=== PATIENT | male | born 1960 | race Two or more races ===

== ENCOUNTER 2024-06-16 17:53 | Inpatient (IN) | payer MEDICAID, OTHER ==
[~2024-06-16] VITALS: Ht 170.2 cm; Wt 89.3 kg
[2024-06-16] MEDS: SODIUM CHLORIDE 0.9% 1,000 ML IV ONE (02:40)
[2024-06-16] MEDS ORDERED: VANCOMYCIN PER PHARMACY 0 MG IV SCH ×3 (19:15→22:45)
[2024-06-16] MEDS ORDERED: VANCOMYCIN 1GM/250ML 250 ML IV SCH (20:15)
[2024-06-16 20:33] LABS: Basophils # (auto) 0.1 10 ^3/uL (0-0.2); Basophils % (auto) 0.9 % (0.0-2.0); Eosinophils # (auto) 0.1 10 ^3/uL (0-0.8); Eosinophils % (auto) 1.9 % (0.0-7.0); Hematocrit 38.9 % (41.0-53.0); Lymphocytes # (auto) 1.5 10 ^3/uL (0.4-5.4); Lymphocytes % (auto) 25.4 % (10.0-50.0); Mean Corpuscular Hemoglobin 31.7 pg (28.0-32.0); Mean Corpuscular Hgb Conc. 33.4 g/dL (32.0-36.0); Mean Corpuscular Volume 94.9 fL (80.0-100.0); Monocytes # (auto) 0.8 10 ^3/uL (0-1.3); Monocytes % (auto) 14.4 % (0.0-12.0); Neutrophils # (auto) 3.3 10 ^3/uL (1.6-8.6); Neutrophils % (auto) 57.4 % (37.0-80.0); Platelet Count (auto) 277 10^3/uL (140-450); White Blood Cell 5.8 10^3/uL (4.4-10.8)
[2024-06-16 20:48] LABS: Alanine Aminotransferase 10 U/L (7-40); Alkaline Phosphatase 91 U/L (46-116); Anion Gap 7 (5-15); Aspartate Aminotransferase 10 U/L (13-40); BUN/Creatinine Ratio 13.3 (10.0-20.0); Blood Urea Nitrogen 11 mg/dL (9-23); CRP High Sensitivity 0.44 mg/dL (<1.0); Calcium 9.7 mg/dL (8.7-10.4); Carbon Dioxide 28 mmol/L (20-31); Chloride 103 mmol/L (98-107); Glucose 105 mg/dL (74-106); Potassium 3.9 mmol/L (3.5-5.1); Sodium 138 mmol/L (136-145)
[2024-06-16 20:49] LABS: Bilirubin, Total 0.2 mg/dL (0.2-1.0)
[2024-06-16 21:31] LABS: Lactic Acid w/Reflex 2.5 mmol/L (0.4-2.0)
[2024-06-16 21:38] LABS: Erythrocyte Sedimentation Rate 16 mm/hr (0-20)
[2024-06-16] MEDS ORDERED: ACETAMINOPHEN 325 MG TAB PO PRN (22:45)
[2024-06-16] MEDS ORDERED: ONDANSETRON HCL 4 MG/2 ML VIAL IV PRN (22:45)
[2024-06-17] MEDS: SODIUM CHLORIDE 0.9% 1,000 ML IV ONE (03:27)
[2024-06-17] MEDS: cefTRIAXone 1GM/50ML D5W 50 ML IV ONE (03:34)
[2024-06-17] MEDS: VANCOMYCIN 1GM/250ML 250 ML IV SCH (03:54)
[2024-06-17] MEDS ORDERED: TAMS0.4C39 PO (05:27)
[2024-06-17] MEDS ORDERED: ALPR0.5T PO (05:27)
[2024-06-17] MEDS ORDERED: ASPI1TAB20 PO (05:27)
[2024-06-17] MEDS ORDERED: METO25TA93 PO (05:27)
[2024-06-17] MEDS ORDERED: CLOP75TA28 PO (05:27)
[2024-06-17] MEDS ORDERED: LISI-711 PO (05:27)
[2024-06-17 05:51] VITALS: BP 135/67; PULSE 56; RESP 18; TEMP 97.5; O2SAT 98
[2024-06-17 08:03] LABS: Hematocrit 40.5 % (41.0-53.0); Hemoglobin 13.7 g/dL (13.5-17.5); Mean Corpuscular Hemoglobin 32.2 pg (28.0-32.0); Mean Corpuscular Hgb Conc. 33.7 g/dL (32.0-36.0); Mean Corpuscular Volume 95.3 fL (80.0-100.0); Platelet Count (auto) 256 10^3/uL (140-450); Red Blood Cells 4.25 10^6/uL (4.5-5.90); Red Cell Distribution Width 12.8 % (11.8-14.3); White Blood Cell 4.7 10^3/uL (4.4-10.8)
[2024-06-17 08:16] LABS: Basophils % (manual) 0 (0.0-2.0); Blast Cells 0; Metamyelocytes % 0; Myelocytes % 0; Promyelocytes % 0; Reactive Lymphocytes 0
[2024-06-17 08:30] LABS: Band Neutrophils % (manual) 1; Eosinophils % (manual) 5 (0-7); Lymphocytes % (manual) 43 (10.0-50.0); Monocytes % (manual) 15 (0-12)
[2024-06-17 08:31] LABS: Platelet Estimate Adequate
[2024-06-17 09:00] VITALS: BP 183/81; PULSE 57; RESP 15; TEMP 97.8; O2SAT 97
[2024-06-17] MEDS: HYDROcodone-ACET 5/325MG TAB PO PRN (09:34)
[2024-06-17] MEDS: ENOXAPARIN SOD 40 MG/0.4 ML SYRINGE SC SCH (09:34)
[2024-06-17] MEDS: FAMOTIDINE 20 MG TAB PO SCH (09:34)
[2024-06-17] MEDS ORDERED: ALPRAZolam 0.5 MG TAB PO PRN (11:15)
[2024-06-17] MEDS: CLOPIDOGREL BISULFATE 75 MG TAB PO ONE (12:14)
[2024-06-17] MEDS: LISINOPRIL 5 MG TAB PO ONE (12:15)
[2024-06-17] MEDS: METOPROLOL SUCCINATE XL 50 MG TAB PO ONE (12:17)
[2024-06-17] MEDS: MORPHINE SULFATE INJ 2 MG/ml SYRG IV PRN (12:24)
[2024-06-17 12:45] VITALS: BP 128/79; PULSE 61; RESP 16; TEMP 97.7; O2SAT 98
[2024-06-17 16:33] VITALS: BP 122/75; PULSE 68; RESP 16; TEMP 97.8; O2SAT 96
[2024-06-17] MEDS ORDERED: HYDR25TA4 PO (17:11)
[2024-06-17] MEDS ORDERED: BUDE1AER4 IN (17:11)
[2024-06-17] MEDS ORDERED: LISI2.5T47 PO (17:11)
[2024-06-17] MEDS: TAMSULOSIN HYDROCHLORIDE 0.4 MG CAP PO SCH (17:29)
[2024-06-17 19:22] LABS: Lactic Acid w/Reflex 2.6 mmol/L (0.4-2.0)
[2024-06-17] MEDS: VANCOMYCIN 1.25GM/250ML 250 ML IV SCH (19:54)
[2024-06-17 20:00] VITALS: PULSE 86; RESP 18; O2SAT 98
[2024-06-17 21:00] VITALS: BP 134/80; PULSE 86; RESP 18; TEMP 99; O2SAT 98
[2024-06-17] MEDS: METOPROLOL SUCCINATE XL 50 MG TAB PO SCH (21:49)
[2024-06-17] MEDS: LISINOPRIL 5 MG TAB PO SCH (21:50)
[2024-06-17] MEDS: cefTRIAXone 1GM/50ML D5W 50 ML IV SCH (21:51)
[2024-06-18] VITALS (7 sets, daily range): BP systolic 111–133; BP diastolic 66–85; PULSE 70–82; RESP 16–19; TEMP 97.6–97.9; O2SAT 92–97
[2024-06-18] MEDS: SODIUM CHLORIDE 0.9% 1,000 ML IV ONE (01:10)
[2024-06-18 05:53] LABS: Basophils # (auto) 0 10 ^3/uL (0-0.2); Eosinophils # (auto) 0.1 10 ^3/uL (0-0.8); Eosinophils % (auto) 1.6 % (0.0-7.0); Hemoglobin 13.3 g/dL (13.5-17.5); Lymphocytes # (auto) 1.5 10 ^3/uL (0.4-5.4); Lymphocytes % (auto) 32.9 % (10.0-50.0); Mean Corpuscular Hemoglobin 31.2 pg (28.0-32.0); Mean Corpuscular Hgb Conc. 33.2 g/dL (32.0-36.0); Mean Corpuscular Volume 94.1 fL (80.0-100.0); Monocytes # (auto) 0.7 10 ^3/uL (0-1.3); Monocytes % (auto) 14.2 % (0.0-12.0); Neutrophils # (auto) 2.4 10 ^3/uL (1.6-8.6); Neutrophils % (auto) 50.3 % (37.0-80.0); Nucleated Red Blood Cells % 0.2 %; Platelet Count (auto) 265 10^3/uL (140-450); Red Blood Cells 4.25 10^6/uL (4.5-5.90); Red Cell Distribution Width 13.3 % (11.8-14.3); White Blood Cell 4.7 10^3/uL (4.4-10.8)
[2024-06-18] MEDS: ASPirin 81 mg TAB PO SCH (09:30)
[2024-06-18] MEDS: CLOPIDOGREL BISULFATE 75 MG TAB PO SCH (09:30)
[2024-06-19] VITALS (7 sets, daily range): BP systolic 93–127; BP diastolic 59–74; PULSE 58–86; RESP 17–20; TEMP 97.5–98; O2SAT 93–100
[2024-06-19 07:13] LABS: Basophils # (auto) 0 10 ^3/uL (0-0.2); Basophils % (auto) 0.7 % (0.0-2.0); Eosinophils # (auto) 0.1 10 ^3/uL (0-0.8); Eosinophils % (auto) 1.5 % (0.0-7.0); Hematocrit 43.4 % (41.0-53.0); Hemoglobin 14.7 g/dL (13.5-17.5); Lymphocytes # (auto) 1.2 10 ^3/uL (0.4-5.4); Lymphocytes % (auto) 23.5 % (10.0-50.0); Mean Corpuscular Hemoglobin 32.3 pg (28.0-32.0); Mean Corpuscular Hgb Conc. 33.9 g/dL (32.0-36.0); Mean Corpuscular Volume 95.2 fL (80.0-100.0); Monocytes # (auto) 0.7 10 ^3/uL (0-1.3); Monocytes % (auto) 12.9 % (0.0-12.0); Neutrophils # (auto) 3.2 10 ^3/uL (1.6-8.6); Neutrophils % (auto) 61.4 % (37.0-80.0); Nucleated Red Blood Cells % 0.1 %; Platelet Count (auto) 289 10^3/uL (140-450); Red Blood Cells 4.56 10^6/uL (4.5-5.90); Red Cell Distribution Width 13.4 % (11.8-14.3); White Blood Cell 5.2 10^3/uL (4.4-10.8)
[2024-06-19] MEDS: VANCOMYCIN 1GM/250ML 250 ML IV ONE (21:30)
[2024-06-20 01:00] VITALS: BP 113/74; PULSE 82; RESP 18; TEMP 98.5; O2SAT 98
[2024-06-20 05:00] VITALS: BP 135/81; PULSE 87; RESP 18; TEMP 98.4; O2SAT 97
[2024-06-20 06:58] LABS: Basophils # (auto) 0 10 ^3/uL (0-0.2); Basophils % (auto) 0.8 % (0.0-2.0); Eosinophils # (auto) 0.1 10 ^3/uL (0-0.8); Eosinophils % (auto) 1.7 % (0.0-7.0); Hematocrit 40.9 % (41.0-53.0); Hemoglobin 13.7 g/dL (13.5-17.5); Lymphocytes # (auto) 1.6 10 ^3/uL (0.4-5.4); Lymphocytes % (auto) 25.8 % (10.0-50.0); Mean Corpuscular Hgb Conc. 33.6 g/dL (32.0-36.0); Mean Corpuscular Volume 95.3 fL (80.0-100.0); Monocytes % (auto) 15.3 % (0.0-12.0); Neutrophils # (auto) 3.5 10 ^3/uL (1.6-8.6); Neutrophils % (auto) 56.4 % (37.0-80.0); Platelet Count (auto) 282 10^3/uL (140-450); Red Blood Cells 4.29 10^6/uL (4.5-5.90); Red Cell Distribution Width 13.1 % (11.8-14.3); White Blood Cell 6.2 10^3/uL (4.4-10.8)
[2024-06-20 08:00] VITALS: BP 119/70; PULSE 81; RESP 18; TEMP 98.3; O2SAT 95
[2024-06-20 12:00] VITALS: BP 119/77; PULSE 70; RESP 18; TEMP 97.2; O2SAT 99
[2024-06-20] MEDS ORDERED: DOXY100C79 PO (15:42)
[2024-06-20 16:00] VITALS: BP 140/80; PULSE 72; RESP 20; TEMP 97.4; O2SAT 95
[2024-06-21] MEDS ORDERED: CEFD300C2 PO (15:01)
== END 2024-06-20 17:39 | disposition home or self-care (01) | DRG 383 ==
LOC: ER 17:59 → OVERFLOW 22:42 → EAST 06-17 05:15
PROVIDERS: ADMIT Nurse Practitioner Family; ATTEND Nurse Practitioner Family
DX: L03.032 Cellulitis of left toe (principal); E87.20 Acidosis, unspecified; E78.5 Hyperlipidemia, unspecified; I10 Essential (primary) hypertension; L97.529 Non-pressure chronic ulcer of other part of left foot with unspecified severity; I25.10 Atherosclerotic heart disease of native coronary artery without angina pectoris; F17.210 Nicotine dependence, cigarettes, uncomplicated; M86.8X7 Other osteomyelitis, ankle and foot; G89.29 Other chronic pain; I25.2 Old myocardial infarction; Z98.61 Coronary angioplasty status; Z79.899 Other long term (current) drug therapy; Z79.82 Long term (current) use of aspirin
CPT/HCPCS: 36415; 73630; 80053; 80202; 82565; 83605; 83880; 85007; 85025; 85027; 85652; 86141; G0378